=== PATIENT | male | born 1965 | race Caucasian/White ===

== ENCOUNTER 2017-01-27 12:35 | Outpatient (CLI) | payer MEDICARE, MEDICAID ==
--- NOTE | 2017-01-27 15:24 | RAD ---
MODIFIED BARIUM SWALLOW WITH SPEECH THERAPIST: HISTORY: A 52-year-old male with dysphagia, oropharyngeal phase, R13.12; and feeding difficulties, R63.3. FINDINGS: There is poor laryngeal elevation and very poor epiglottic inversion. There is residue in the vergara cula and pyriform sinuses without spontaneous repeat swallowing. Upon prompting, these only partial ly clear upon repeat swallow. Silent penetration and silent aspiration are witnessed. The oral pha se is excessively rapid. IMPRESSION: Significant dysphagia, especially of the pharyngeal phase, including silent aspiration, and poor epi glottic inversion. POS: EDDIE
== END 2017-01-27 12:36 | disposition home or self-care (01) ==
LOC: RAD 12:35
PROVIDERS: ATTEND Family Medicine
DX: R13.12 Dysphagia, oropharyngeal phase (principal); R63.3 Feeding difficulties
CPT/HCPCS: 74230; G8996-GN-CM; G8997-GN-CK

== ENCOUNTER 2018-01-11 13:09 | Outpatient (CLI) | payer MEDICARE, MEDICAID ==
--- NOTE | 2018-01-11 15:21 | RAD ---
MODIFIED BARIUM SWALLOW: Date: 01/11/18 HISTORY: Difficulty swallowing. Dysphagia. FINDINGS/IMPRESSION: Exam is performed in conjunction with speech pathology with multiple consistencies. Video review is a vailable and shows good bolus formation and retropulsion. Good initiation of swallowing. No evidence of penetration or aspiration. Moderate amount of residua was present within the vallecula and piriform sinuses. This became more pr onounced upon barium coated solids. There was not necessarily good clearance upon a secondary swallow , although there was complete clearance after liquids were given. The upper esophagus was also evaluated in the AP projection. 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 The esophagus below the level of the hypopharynx was not evaluated. Please see separate detailed repo rt from speech pathology. Fluoro Time: 2.2 minutes. POS: EDDIE
== END 2018-01-11 13:10 | disposition home or self-care (01) ==
LOC: RAD 13:09
PROVIDERS: ATTEND Family Medicine
DX: R13.12 Dysphagia, oropharyngeal phase (principal)
CPT/HCPCS: 74230; G8996-GN-CJ; G8997-GN-CJ

== ENCOUNTER 2018-03-10 13:06 | Day surgery (SDC) | payer MEDICARE, MEDICAID ==
[2018-03-09 10:53] VITALS: BMI 132.0
[2018-03-10] MEDS ORDERED: Lidocaine 1% w/Epinephrine 1:100K 30 ML VIAL ONE (15:53)
[2018-03-10] MEDS ORDERED: Fentanyl 100 MCG/2 ML VIAL ONE ×2 (16:24→17:56)
[2018-03-10] MEDS ORDERED: Midazolam HCl 2 mg/2 ml Vial ONE (16:25)
[2018-03-10] MEDS ORDERED: PROPOFOL 40 ML ONE (16:41)
--- NOTE | 2018-03-10 17:23 | EKG ---
Test Reason : PREOP Blood Pressure : / mmHG Vent. Rate : 053 BPM Atrial Rate : 053 BPM P-R Int : 156 ms QRS Dur : 084 ms QT Int : 428 ms P-R-T Axes : 067 089 071 degrees QTc Int : 401 ms Sinus bradycardia Otherwise normal ECG No previous ECGs available Confirmed by DR. Luan JOINER ([id number]) on 03/10/2018 5:23:19 PM Referred By: PADMA Confirmed By:DR. Luan JOINER
--- NOTE | 2018-03-11 10:13 | OP ---
PREOPERATIVE DIAGNOSIS: Right parotid mass. POSTOPERATIVE DIAGNOSES: Right parotid mass and lipoma. PROCEDURES PERFORMED: Right superficial parotidectomy, facial nerve dissection using facial nerve mo nitoring. PROCEDURE IN DETAIL: After consent was obtained, the patient was identified and brought to the opera tin room and placed on the table in supine position. General endotracheal anesthesia was obtained a nd facial nerve monitor was applied and documented to be working well. We prepped and draped the pat ient and infiltrated the line of intended incision with 1% lidocaine with 1:100,000 epinephrine. An incision was made preauricularly extended down into a natural skin crease 2 fingerbreadths below the angle of the mandible down to the level of the SMAS. We then elevated a flap at that level and encou ntered a large parotid mass. Because of the nature and position of the mass, a decision was made to identify the facial nerve and dissect the facial nerve along its proximal branches to ensure avoidanc e of any injury to the facial nerve. We dissected along the anterior border of sternocleidomastoid a nd along the preauricular space. We then identified the pointer cartilage and the posterior belly of the digastric insertion and meticulously dissected and in that region, we found the trunk of the fac ial nerve. This was then dissected until the upper and lower initial branches were identified. Thes e were dissected for approximately 3 cm. We then turned our attention back to the tail of the paroti d region where the lipoma was and performed meticulous dissection with care not to injure the facial nerve branches. The specimen was removed and sent for histologic evaluation and attention was turned to closing the wound. The wound was closed in layers with Monocryl used to reapproximate the SMAS l ricardo to the anterior border of sternocleidomastoid fascia. We also placed some fibular SurgiSeal in the deep aspect of the wound as well as over the SMAS to prevent Adriano syndrome and facilitate hemosta sis. The skin flap was then replaced and closed in layers with 5-0 Monocryl to reapproximate the spike mis and 6-0 rapidly absorbing gut for the skin. A Dermabond was placed to avoid having to remove the sutures in a special needs patient. The patient was awakened, facial nerve intact and sent back to the with instructions to see me next week.
== END 2018-03-10 19:15 | disposition home or self-care (01) ==
LOC: SDC 13:06
PROVIDERS: ATTEND Specialist
PROC: 0CBB0ZZ Excision of Right Parotid Duct, Open Approach (ICD-10-PCS; principal; 2018-03-10)
DX: D17.79 Benign lipomatous neoplasm of other sites (principal); F41.9 Anxiety disorder, unspecified; Z79.83 Long term (current) use of bisphosphonates; Z79.899 Other long term (current) drug therapy
CPT/HCPCS: 88304; 93005; 93010; 96374; J2001; J2250; J2704; J3010

== ENCOUNTER 2018-03-15 12:36 | Outpatient (CLI) | payer MEDICARE, MEDICAID ==
--- NOTE | 2018-03-15 16:02 | RAD ---
MODIFIED BARIUM SWALLOW IN THE PRESENCE OF SPEECH THERAPIST: 03/15/18 HISTORY: Dysphagia, oropharyngeal phase; feeding difficulties. FINDINGS/IMPRESSION: There is laryngeal penetration without katie aspiration. There is persistent pooling of contrast in t he vallecula and piriform sinuses. Please see recommendations of the speech therapist for further management. POS: EDDIE
== END 2018-03-15 12:37 | disposition home or self-care (01) ==
LOC: RAD 12:36
PROVIDERS: ATTEND Family Medicine
DX: R13.12 Dysphagia, oropharyngeal phase (principal); R63.3 Feeding difficulties
CPT/HCPCS: 74230

== ENCOUNTER 2018-04-14 08:31 | Day surgery (SDC) | payer MEDICARE, MEDICAID ==
[2018-04-13 11:00] VITALS: BMI 20.2
[2018-04-14] MEDS ORDERED: Midazolam HCl 2 mg/2 ml Vial ONE (09:32)
[2018-04-14] MEDS ORDERED: PROPOFOL 200 MG/20 ML VIAL ONE (13:18)
[2018-04-14] MEDS ORDERED: PHENYLEPHRINE-NS 100 MCG/ML 10 ML SYRINGE ONE (13:18)
--- NOTE | 2018-04-14 16:57 | OP ---
DATE OF PROCEDURE: 04/14/2018 PROCEDURE PERFORMED: Colonoscopy (screening). INDICATIONS FOR PROCEDURE: Screening for malignant neoplasm of the colon. DESCRIPTION OF PROCEDURE: After the risks and benefits of the procedure were explained to the patient's mother (medical power of stippler) including risks of bleeding, infection, perforation, reactions to anesthesia, aspiration, and/or pain, informed consent was obtained. The patient was then taken to the endoscopy suite, where deep sedation was administered via propofol and anesthesia support. Once adequate sedation was achieved, the patient was transferred into the left lateral decubitus position in preparation for the colonoscopy. A digital rectal examination was then performed, followed by introduction of the standard colonoscope, which was then advanced to the terminal ileum without difficulty. The quality of the prep was fair with a large amount of retained liquid stool, but with aggressive irrigation and suctioning, it was converted to a good prep with adequate visualization of the colonic mucosa. The patient tolerated the procedure well with no immediate perioperative complications. After the procedure was completed, all equipment was removed from the patient and transferred to Day Stay in satisfactory condition. COLONOSCOPY FINDINGS: Digital rectal exam normal. COLON FINDINGS: Normal-appearing mucosa was seen in the terminal ileum as well as at the appendiceal orifice and ileocecal valve. Diffuse darkening of the colonic mucosa was seen throughout the entire colon and retained a sort of leopard print pattern; however, there were no other associated findings with it. Careful examination of the colonic mucosa yielded otherwise normal-appearing mucosa in the cecum, ascending, transverse, descending, sigmoid colons and rectum. No abnormalities were seen on rectal retroflexion. IMPRESSION: 1. Diffuse melanosis coli seen throughout the entire colon, most likely secondary to chronic laxative use. 2. Otherwise, normal colonoscopy. RECOMMENDATIONS: 1. We will continue bowel regimen for this patient given his history of chronic constipation. 2. We would recommend repeat colonoscopy in 10 years as part of screening for malignant neoplasm of the colon. 3. Follow up in the GI Clinic as needed. Job ID: [id number]
== END 2018-04-14 11:00 | disposition home or self-care (01) ==
LOC: SDC 08:31
PROVIDERS: ATTEND Internal Medicine
PROC: 0DJD8ZZ Inspection of Lower Intestinal Tract, Via Natural or Artificial Opening Endoscopic (ICD-10-PCS; principal; 2018-04-14)
DX: Z12.11 Encounter for screening for malignant neoplasm of colon (principal); K63.89 Other specified diseases of intestine; R13.12 Dysphagia, oropharyngeal phase; K59.00 Constipation, unspecified; Z79.899 Other long term (current) drug therapy
CPT/HCPCS: J2250

== ENCOUNTER 2018-09-15 12:48 | Outpatient (CLI) | payer MEDICARE, MEDICAID ==
--- NOTE | 2018-09-15 14:06 | RAD ---
Exam: Modified barium swallow with speech therapist. Patient was given multiple consistencies in evaluating the upright lateral position. Fluoroscopy time 2.4 minutes Dose: 1.128 edmondson centimeter squared. COMPARISON: 03/15/2018 Penetration with variable liquid consistencies without katie aspiration. Please see speech therapy report for additional findings and recommendations.
== END 2018-09-15 12:49 | disposition home or self-care (01) ==
LOC: RAD 12:48
PROVIDERS: ATTEND Family Medicine
DX: R13.12 Dysphagia, oropharyngeal phase (principal); R63.3 Feeding difficulties
CPT/HCPCS: 74230